=== PATIENT | male | born 1985 | race Caucasian/White ===

== ENCOUNTER 2019-07-18 23:37 | Emergency (ER) | payer OTHER, SELFPAY ==
[2019-07-18 23:38] VITALS: BP 139/86; PULSE 118; RESP 16; TEMP 36.9; O2SAT 97
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
[2019-07-19] MEDS: TETANUS,DIPHTHERIA,AC PERTUSSIS ADULT 0.5 ML (ADACEL) IM (00:41)
[2019-07-19 01:11] VITALS: BP 132/72; PULSE 100; RESP 16; TEMP 36.9; O2SAT 98
== END 2019-07-19 01:24 | disposition home or self-care (01) ==
PROVIDERS: Emergency Provider Emergency Medicine; PCP Family Medicine
DX: S01.81XA Laceration without foreign body of other part of head, initial encounter (principal); W21.11XA Struck by baseball bat, initial encounter; Z23 Encounter for immunization
CPT/HCPCS: 12042; 12052; 90471; 90715; 99283; A9270

== ENCOUNTER 2019-07-19 21:12 | Emergency (ER) | payer OTHER, SELFPAY ==
--- NOTE | ~2019-07-19 | CT_ITS ---
EXAMINATION: CT BRAIN W/O DATE: 07/19/2019 22:47 INDICATION: Right frontal headache. Laceration yesterday. TECHNIQUE: Computed tomography (CT) of the head was performed without intravenous contrast. The dose- length product was 605.33 mGy-cm. The mA was adjusted according to patient size. Iterative reconstruc tion technique was employed. COMPARISON: Comparison to multiple prior studies sequentially, with oldest reviewed study dated 04/25. FINDINGS: Stable subtle hypodensity right frontal lobe, likely prominent perivascular space. Stable c hronic arachnoid cyst posterior to cerebellar vermis. No acute intracranial abnormality. No depressed skull fractures. Paranasal sinuses and mastoids are pneumatized. Small amount of soft tissue gas ant erior to the frontal skull, likely related to laceration. No ventriculomegaly or midline shift. Midline sagittal images demonstrate a normal corpus callosum, c raniovertebral junction and sella turcica. Basilar cisterns are patent. Paranasal sinuses and mastoids are pneumatized. No depressed skull fractures. IMPRESSION: 1. No acute intracranial abnormality. No significant interval change. Reviewed, dictated and finalized at location A.
[2019-07-19 21:26] VITALS: BP 149/87; PULSE 96; RESP 16; TEMP 36.9; O2SAT 97
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
[2019-07-19 23:08] VITALS: BP 138/79; PULSE 90; RESP 18; TEMP 37.1; O2SAT 97
== END 2019-07-19 23:29 | disposition home or self-care (01) ==
PROVIDERS: Emergency Provider Family Medicine
DX: S00.93XA Contusion of unspecified part of head, initial encounter (principal); R51 Headache; W22.8XXA Striking against or struck by other objects, initial encounter
CPT/HCPCS: 70450; 99283; 99284; A9270

== ENCOUNTER 2021-04-25 14:49 | Emergency (ER) | payer OTHER, SELFPAY ==
--- NOTE | ~2021-04-25 | XR_ITS ---
EXAMINATION: [id number] EXAM DATE: 04/25/2021 15:36 INDICATION: Left rib pain after lifting 2 days ago. TECHNIQUE: Frontal projection of the upper left ribs, frontal projection of the lower left ribs, obli que projection of the left ribs, frontal chest x-ray(s) for interpretation. There is no prior study for comparison. FINDINGS: Age-indeterminate nondisplaced left 3rd and 4th rib fractures anterolaterally, clinical cor relation. This finding has been indicated, marked on the examination for review, clinical correlation . There is no soft tissue abnormality seen. No confluent consolidation, pneumothorax or pleural eff usion suspected. Cardiomediastinal silhouette is normal. IMPRESSION: Age-indeterminate left 3rd, 4th rib fractures anterolaterally. Reviewed, dictated and finalized at location G. [employer]
[2021-04-25 15:11] VITALS: BP 134/103; PULSE 118; RESP 18; TEMP 36.3; O2SAT 100
--- NOTE | 2021-04-25 15:19 | ED.GENADULT ---
HPI - General Adult General Chief complaint: Unspecified Stated complaint: cracked rib Time Seen by Provider: 04/25/21 15:19 Source: patient Mode of arrival: ambulatory Limitations: no limitations History of Present Illness HPI narrative: 35-year-old man with history of smoking comes in today complaining of left-sided rib pain for the last 2 days. Patient states that started suddenly while he was lifting a compressor of the back of his truck and he felt a pop in his ribs. Pain is worse when he takes a deep breath or palpates the affected area. He denies hematuria, shortness of breath, other chest pain, nausea, vomiting, fever, hemoptysis or productive cough. He denies prior chest surgery. MD complaint: Left rib pain Onset (ago): day(s) (2) Location: chest Radiation: non-radiation Severity: severe Quality: sharp Pain Consistency: constant Relieving factors: rest Exacerbating factors: movement (Deep breaths and palpation) Related Data Home Medications Medication Instructions Recorded Confirmed gabapentin 600 mg PO TID 07/19/19 04/25/21 venlafaxine 150 mg PO DAILY 07/19/19 04/25/21 buspirone 15 mg PO DAILY 04/25/21 04/25/21 dextroamphetamine-amphetamine 20 mg PO BID 04/25/21 04/25/21 meloxicam 15 mg PO DAILY 04/25/21 04/25/21 quetiapine 25 mg PO HS 04/25/21 04/25/21 Allergies Allergy/AdvReac Type Severity Reaction Status Date / Time sulfisoxazole Allergy Severe HIVES Verified 04/25/21 15:14 Sulfa (Sulfonamide Allergy Mild Hives Verified 04/25/21 15:14 Antibiotics) Review of Systems Review of Systems: All systems reviewed & are unremarkable except as noted in HPI and below Constitutional: Constitutional: Denies chills and Denies fever(s) Eyes: Eyes: Reports no additional eye complaints ENT: Denies nasal congestion, Denies nasal discharge and Denies sore throat Cardiovascular: Cardiovascular: Reports as per HPI, Reports chest pain and Denies pedal edema Respiratory: Respiratory: Denies change in phlegm color, Denies cough, Denies hemoptysis, Reports pain with cough and Denies dyspnea Gastrointestinal: Gastrointestinal: Denies nausea and Denies vomiting Genitourinary: Genitourinary: Denies hematuria Musculoskeletal: Musculoskeletal: Reports back pain (Chronic), Denies arthralgias and Denies joint swelling Integumentary/Breasts: Skin/Breast: Denies pruritus, Denies lesions, Denies erythema and Denies rash Neurologic: Denies dizziness, Denies syncope and Denies headache(s) Allergic/Immunologic: Allergic/Immunologic: Denies lip swelling and Denies throat swelling PMFSH Past Medical History Medical History Back pain No pertinent past medical history Surgical History Surgical History H/O elbow surgery H/O wrist surgery No pertinent past surgical history S/P hernia surgery Social History Social History Smoking status: Current every day smoker Alcohol intake: current Substance use: never Exam Const: General: cooperative, healthy appearing and acute distress moderate; No ill appearing Nutritional Appearance: average body habitus Orientation/consciousness: patient oriented x3 Limitations: no limitations HENMT: Head: normal to inspection and normocephalic Face and sinus: normal facial exam Throat: posterior oropharynx normal Eyes: Pupils: Equal, round and reactive pupils present EOM: EOMs intact bilaterally Chest: Chest palpation & inspection: normal inspection of the chest and tenderness rib (Left lateral lower) Resp: Effort & Inspection: normal respiratory effort, able to speak in complete sentences, not labored, no respiratory distress and no stridor Auscultation: clear to auscultation bilaterally Cardio: Rate: regular rate Rhythm: regular rhythm Heart sounds: no murmurs Skin: General skin exam: normal color and n
[2021-04-25 16:28] VITALS: BP 132/99; PULSE 103; RESP 20; TEMP 36.6; O2SAT 97
== END 2021-04-25 16:30 | disposition home or self-care (01) ==
PROVIDERS: Emergency Provider Emergency Medicine
DX: S22.42XA Multiple fractures of ribs, left side, initial encounter for closed fracture (principal); X50.0XXA Overexertion from strenuous movement or load, initial encounter
CPT/HCPCS: 71101; 99283

== ENCOUNTER 2021-06-23 19:10 | Emergency (ER) | payer OTHER, SELFPAY ==
[2021-06-23 19:34] VITALS: BP 131/87; PULSE 103; RESP 16; TEMP 36.6; O2SAT 96
--- NOTE | 2021-06-23 20:04 | ED.GENADULT ---
HPI - General Adult General Chief complaint: Unspecified Stated complaint: tooth infection Time Seen by Provider: 06/23/21 19:12 Source: patient and RN notes reviewed Mode of arrival: ambulatory Limitations: no limitations History of Present Illness complaint: toothache Onset (ago): day(s) (3) Location: mouth Severity: mild Severity scale (1-10): 6 Quality: aching Pain Consistency: constant Relieving factors: none Exacerbating factors: eating Associated symptoms: denies other symptoms Treatments prior to arrival: NSAID Related Data Home Medications Medication Instructions Recorded Confirmed gabapentin 600 mg PO TID 07/19/19 06/23/21 venlafaxine 150 mg PO DAILY 07/19/19 06/23/21 buspirone 15 mg PO DAILY 04/25/21 06/23/21 dextroamphetamine-amphetamine 20 mg PO BID 04/25/21 06/23/21 meloxicam 15 mg PO DAILY 04/25/21 06/23/21 quetiapine 25 mg PO HS 04/25/21 06/23/21 Allergies Allergy/AdvReac Type Severity Reaction Status Date / Time sulfisoxazole Allergy Severe HIVES Verified 06/23/21 19:38 Sulfa (Sulfonamide Allergy Mild Hives Verified 06/23/21 19:38 Antibiotics) Review of Systems Review of Systems: All systems reviewed & are unremarkable except as noted in HPI and below PMFSH Past Medical History Medical History Back pain No pertinent past medical history Toothache Surgical History Surgical History H/O elbow surgery H/O wrist surgery No pertinent past surgical history S/P hernia surgery Social History Social History Smoking status: Current every day smoker Alcohol intake: current Substance use: never Exam Const: General: cooperative and no acute distress Nutritional Appearance: well nourished Orientation/consciousness: oriented to person and patient oriented x3 Limitations: no limitations HENMT: Head: normal to inspection, normocephalic, atraumatic and other (left upper molar toothache) Ears: hearing grossly normal bilaterally, external ears normal, TM's normal bilaterally and EAC's normal General nose exam: Normal external nose present and Normal nares present Face and sinus: normal facial exam and sinuses nontender Mouth: Yes Normal oral and palatal mucosa present, Yes oropharynx normal and Yes moist mucous membranes Teeth and gingiva: caries, gingiva abnormal and other (left upper molar toothache) Throat: posterior oropharynx normal Eyes: General: appearance normal, both eyes and all related structures Visual Leon: normal visual leon by confrontation Eyelids: eyelids normal Conjunctivae: conjunctivae normal Sclera: sclerae normal Cornea: corneas normal Pupils: Equal, round and reactive pupils present and Pupils normal by confrontation EOM: EOMs intact bilaterally Neck: Neck: normal visual inspection, full ROM and no lymphadenopathy Chest: Chest palpation & inspection: normal inspection of the chest Resp: Effort & Inspection: normal respiratory effort Auscultation: clear to auscultation bilaterally Cardio: Jugular venous distension: no JVD Rate: regular rate Rhythm: regular rhythm Peripheral pulses: Peripheral pulses 2+ throughout GI: Inspection: normal to inspection GI Palp: No abdominal tenderness Auscultation: normal bowel sounds Back/Spine/Pelvis: Back: no CVA tenderness Cervical Spine: cervical ROM normal Thoracic/Lumbar Spine: thoraco-lumbar ROM normal Skin: General skin exam: normal color Neuro: General: oriented to person, patient oriented x3, no focal motor deficits and CN's II-XI intact bilaterally Cranial nerves: Yes CN's II-XII intact bilaterally, Yes Facial sensation intact/muscles of mastication intact, Yes Intact sense of smell present, Yes Equal, round and reactive pupils present and Yes Normal accommodation reflex present Cognition (Neuro): normal cognition Speech: normal speec
[2021-06-23] MEDS: cefTRIAXone 1 GM VIAL IM (20:19)
[2021-06-23] MEDS: IBUPROFEN 400 MG TABLET 800 MG PO (20:19)
[2021-06-23 20:39] VITALS: BP 144/70; PULSE 78; RESP 16; TEMP 36.8; O2SAT 99
== END 2021-06-23 20:39 | disposition home or self-care (01) ==
PROVIDERS: Emergency Provider Emergency Medicine; PCP Family Medicine
DX: K08.89 Other specified disorders of teeth and supporting structures (principal)
CPT/HCPCS: 96372; 99283; A9270; J0696

== ENCOUNTER 2022-01-04 10:47 | Emergency (ER) | payer OTHER, SELFPAY ==
[2022-01-04 11:06] VITALS: BP 122/79; PULSE 87; RESP 16; TEMP 36.4; O2SAT 100
--- NOTE | 2022-01-04 11:15 | ED.GENADULT ---
HPI - General Adult General Chief complaint: Extremity Problem,Nontraumatic Stated complaint: R knee pain Time Seen by Provider: 01/04/22 11:08 History of Present Illness HPI narrative: Singh is a previously healthy 36M that presented to the emergency department for pain in his right knee for a couple weeks. 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 He has pain on the anterior and lateral sides of his knee that is worse when he is on it and it aches at night. There was no fall, injury, or new trauma to the area. No fevers, chills, or systemic symptoms. His last dose of NSAID was ibuprofen very early this morning. Related Data Home Medications Medication Instructions Recorded Confirmed No Home Medications 01/04/22 01/04/22 Allergies Allergy/AdvReac Type Severity Reaction Status Date / Time sulfisoxazole Allergy Severe HIVES Verified 01/04/22 11:04 Sulfa (Sulfonamide Allergy Mild Hives Verified 01/04/22 11:04 Antibiotics) Review of Systems Review of Systems: All systems reviewed & are unremarkable except as noted in HPI and below PMFSH Past Medical History Medical History Back pain No pertinent past medical history Toothache Surgical History Surgical History H/O elbow surgery H/O wrist surgery No pertinent past surgical history S/P hernia surgery Social History Social History Smoking status: Current every day smoker Alcohol intake: current Substance use: never Exam Const: General: healthy appearing, no acute distress and alert; No confusion Nutritional Appearance: well nourished Orientation/consciousness: patient oriented x3 HENMT: Head: normal to inspection Ears: external ears normal General nose exam: Normal external nose present Eyes: Conjunctivae: conjunctivae normal Pupils: Equal, round and reactive pupils present Neck: Neck: normal visual inspection Resp: Effort & Inspection: normal respiratory effort and not labored Cardio: Rate: regular rate Skin: General skin exam: normal color Neuro: General: patient oriented x3, moves all extremities, no meningeal signs, no focal motor deficits and CN's II-XI intact bilaterally Extrem: Other: Right knee had a small effusion, No varus or valgus laxity. Negative anterior/posterior drawer test. Negative Gurdeep. +TTP over the prepatellar bursa and pes anserine bursa Psych: Mental Status: mental status grossly normal Course Course Emergency Course: Gave toradol for the pain. Vital Signs Vital signs: Vital Signs Temperature 97.5 F L 01/04/22 11:06 Pulse Rate 87 01/04/22 11:06 Respiratory Rate 16 01/04/22 11:06 Blood Pressure 122/79 01/04/22 11:06 Pulse Oximetry 100 01/04/22 11:06 Oxygen Delivery Room Air 01/04/22 11:06 Temperature 97.5 F L 01/04/22 11:06 Pulse Rate 82 01/04/22 12:16 Respiratory Rate 16 01/04/22 12:16 Blood Pressure 120/79 01/04/22 12:16 Pulse Oximetry 99 01/04/22 12:16 Oxygen Delivery Room Air 01/04/22 12:16 Medical Decision Making Vital Signs Vital Signs: Vital Signs Temperature 97.5 F L 01/04/22 11:06 Pulse Rate 87 01/04/22 11:06 Respiratory Rate 16 01/04/22 11:06 Blood Pressure 122/79 01/04/22 11:06 Pulse Oximetry 100 01/04/22 11:06 Oxygen Delivery Room Air 01/04/22 11:06 Temperature 97.5 F L 01/04/22 11:06 Pulse Rate 82 01/04/22 12:16 Respiratory Rate 16 01/04/22 12:16 Blood Pressure 120/79 01/04/22 12:16 Pulse Oximetry 99 01/04/22 12:16 Oxygen Delivery Room Air 01/04/22 12:16 Discharge Plan Discharge Clinical Impression: Bursitis, prepatellar, right Patient Disposition: Home, Self-Care Condition: Stable Instructions: Knee Bursitis (ED) Prescriptions: No Action No Home Medications Follow-up
[2022-01-04] MEDS: KETOROLAC 30 MG/ML VIAL (*BKC) IM (11:30)
[2022-01-04 12:16] VITALS: BP 120/79; PULSE 82; RESP 16; O2SAT 99
== END 2022-01-04 12:21 | disposition home or self-care (01) ==
PROVIDERS: Emergency Provider Family Medicine
DX: M71.561 Other bursitis, not elsewhere classified, right knee (principal)
CPT/HCPCS: 96372; 99283; J1885